=== PATIENT | female | born 1985 | race African-American/Black ===

== ENCOUNTER 2019-11-09 19:23 | Observation (INO) ==
[2019-11-09] MEDS ORDERED: DIPH/TET/ACEL PERT BOOSTER VACCINE 0.5 ML VIAL IM ONE (19:37)
[2019-11-09] MEDS ORDERED: ceFAZolin 1,000 MG VIAL IM ONE (19:37)
[2019-11-09] MEDS ORDERED: KETOROLAC 30 MG/1 ML VIAL IV STA (19:59)
[2019-11-09 20:57] LABS: Basophils % 0.2 % (0.0-0.8); Eosinophils # 0.1 10*3/uL (0.0-0.87); Eosinophils % 0.9 % (0.00-10.9); Hematocrit 36.8 VOL% (35.7-47.0); Hemoglobin 11.5 GM/DL (12.0-16.0); Immature Granulocytes % 0.2 %; Immature Granulocytes Absolute 0.02 #; Lymphocytes # 2.2 10*3/uL (1.4-4.0); Lymphocytes % 23.3 % (21.3-54.2); Mean Corpuscular HGB Conc 31.3 GM/DL (32-36); Mean Corpuscular Volume 80.5 FL (87-102); Mean Platelet Volume 9.9 FL (9.6-12.0); Monocytes % 4.8 % (1.7-12.7); Neutrophils % 70.6 % (38.7-73.9); Platelet Count 474 T/CUMM (130-400); Red Blood Count 4.57 MC/CUMM (3.8-5.5); Red Cell Distribution Width 14.3 % (9.3-17.3); White Blood Count 9.5 T/CUMM (4-12)
[2019-11-09 21:19] LABS: Albumin 3.8 G/DL (3.4-5.0); Bilirubin,Total 0.4 MG/DL (0.2-1.0); Calcium 9.2 MG/DL (8.5-10.1); Total Protein 7.8 G/DL (6.4-8.3)
[2019-11-09] MEDS ORDERED: MAGNESIUM HYDROXIDE SUSP 30 ML UDCUP PO PRN (23:36)
[2019-11-09] MEDS ORDERED: ONDANSETRON 4 MG/2 ML VIAL IV PRN (23:36)
[2019-11-09] MEDS ORDERED: HYDROmorphone 2 MG/1 ML VIAL IV PRN (23:36)
[2019-11-10] MEDS: SODIUM CHLORIDE 0.9% 1,000 ML IV SCH ×2 (00:03→11:48)
[2019-11-10] MEDS: ceFAZolin 1,000 MG in SYRINGE 1 EACH IV SCH ×3 (03:25→16:19)
[2019-11-10] MEDS ORDERED: LIDOCAINE 1% 20 ML VIAL ONE (06:47)
[2019-11-10] MEDS ORDERED: BUPIVACAINE 0.25% /EPI 10 ML VIAL ONE (06:47)
[2019-11-10] MEDS ORDERED: LIDOCAINE 1%/EPI INJ 20 ML VIAL ONE (06:47)
[2019-11-10] MEDS ORDERED: FAMOTIDINE 20 MG TABLET PO ONE (06:53)
[2019-11-10] MEDS ORDERED: DIAZEPAM 5 MG TABLET PO ONE (06:53)
[2019-11-10] MEDS ORDERED: ceFAZolin 1,000 MG VIAL ONE (08:16)
[2019-11-10] MEDS ORDERED: BACITRACIN OINT 0.9 GM PACK TOP ONE (08:18)
[2019-11-10] MEDS ORDERED: propofoL 200 MG/20 ML VIAL IV ONE (08:52)
[2019-11-10] MEDS ORDERED: fentaNYL 100 MCG/2 ML VIAL ONE (08:52)
[2019-11-10] MEDS ORDERED: SEVOFLURANE 1 UNIT/15 MINUTE INH ONE (08:52)
[2019-11-10] MEDS ORDERED: LIDOCAINE 2% 5 ML VIAL ONE (08:52)
[2019-11-10] MEDS ORDERED: LACTATED RINGERS 1,000 ML IV ONE (08:53)
[2019-11-10] MEDS ORDERED: MIDAZOLAM 2 MG/2 ML VIAL ONE (08:53)
[2019-11-10] MEDS ORDERED: ONDANSETRON 4 MG/2 ML VIAL ONE ×2 (08:53→08:59)
[2019-11-10] MEDS ORDERED: ONDANSETRON 4 MG/2 ML VIAL IV PRN (08:55)
[2019-11-10] MEDS ORDERED: HYDROmorphone 2 MG/1 ML VIAL ONE (08:59)
[2019-11-10] MEDS: HYDROmorphone 2 MG/1 ML VIAL IV PRN ×4 (09:01→09:27)
[2019-11-10 16:41] VITALS: BP 111/69
== END 2019-11-10 17:50 | disposition home or self-care (01) ==
LOC: N.EDINP 19:23 → N.ED 19:23 → N.3E 22:04
PROVIDERS: ADMIT Orthopaedic Surgery; ATTEND Orthopaedic Surgery